=== PATIENT | female | born 1975 | race Caucasian/White ===

== ENCOUNTER 2016-05-11 14:32 | Emergency (ER) | payer OTHER ==
[2016-05-11 14:41] VITALS: BP 159/80; PULSE 78; RESP 18; TEMP 98; O2SAT 99
[2016-05-11 14:49] LABS: COLOR YELLOW; LEUKOCYTE ESTERASE,URINE 3+ (NEGATIVE)
[2016-05-11 14:59] LABS: BACTERIA 2+ /hpf (NONE SEEN); MUCUS TRACE /lpf (NONE-1+); RBC,URINE 25-50 /hpf (0-3); WBC,URINE 50-182 /hpf (0-3)
[2016-05-11 15:04] LABS: YEAST OCCASIONAL /hpf (NONE SEEN)
--- NOTE | 2016-05-11 15:24 | UCPHY ---
H & P Time Seen by Provider: 05/11/16 14:57 Patient Type: Established HPI/ROS: HPI Urinary complaints. 40-year-old female by private vehicle with her friend. This patient reports that she has had burning with urination and some blood in her urine since this morning. She denies back pain. No fever. No vomiting. ROS: Constitutional: No fever, no chills. No weakness. Gastrointestinal: No abdominal pain, no vomiting, no diarrhea. Genitourinary: As above. Musculoskeletal: No back pain. No neck pain. No myalgias or arthralgias. Skin: No rashes. Neurological: No headache. No focal weakness or altered sensation. Past medical history: Bipolar. Social history: Physical Exam: General Appearance: Alert, no distress. This patient is responding to questions appropriately and in full sentences. This patient appears well- hydrated and well-nourished. Eyes: Pupils equal and round no pallor or injection. No lid edema, erythema or injection. Gastrointestinal: Abdomen is soft and nontender, no masses, bowel sounds normal. No focal tenderness at McBurney's point. No Palacios sign. Neurological: Motor sensory function is grossly intact. Cranial nerves are normal. Gait is normal. Skin: Warm and dry, no rashes. Musculoskeletal: No CVA tenderness bilaterally. Extremities are symmetrical. All joints range without pain or impingement. Psychiatric: No agitation. No depression. Database: EKG: Imaging: Procedures: Emergency department course: Results of urinalysis discussed with the patient. Diagnosis of urinary tract infection discussed. Medication allergies reviewed. Patient started on Keflex in the emergency department for treatment of urinary tract infection. Plan will be to prescribe her Keflex at 500 mg four times daily for the next 7 days. I will also prescribe Pyridium. She feels comfortable with this plan. Her vital signs have been reviewed and are normal other than moderate hypertension. She feels comfortable going home with her mother. Follow-up and return to emergency department precautions discussed. All of her questions were answered. She was discharged in good condition. Differential Diagnosis: The differential diagnosis on this patient includes but is not limited to urinary tract infection, cystitis. Pyelonephritis unlikely. This represents a partial list of diagnoses considered. These considerations are based on history , physical exam, past history, reassessment and diagnostic testing. Smoking Status: Never smoked Constitutional: Initial Vital Signs Temperature (C) 36.6 C 05/11/16 14:39 Heart Rate 78 05/11/16 14:39 Respiratory Rate 18 05/11/16 14:39 Blood Pressure 159/80 H 05/11/16 14:39 O2 Sat (%) 99 05/11/16 14:39 Allergies/Adverse Reactions: No Known Allergies Allergy (Verified 07/13/12 20:26) Home Medications: Medication Instructions Recorded [place] Carbonate ER [Lithobid 300 1,050 mg PO 07/13/12 mg (RX)] Multivitamins [Tab-A-Tho] 1 each PO DAILY 07/13/12 Cephalexin [Keflex (*)] 500 mg PO Q6 7 Days 05/11/16 Phenazopyridine HCl [Pyridium] 200 mg PO TID #10 tab 05/11/16 Medical Decision Making - Data Points Laboratory Results: 05/11/16 14:45 Urine Color YELLOW Urine Appearance CLOUDY Urine pH 5.0 (5.0-7.5) Ur Specific [place] 1.025 (1.002-1.030) Urine Protein 3+ H (NEGATIVE) Urine Ketones TNP Urine Blood 3+ H (NEGATIVE) Urine Nitrate TNP Urine Bilirubin NEGATIVE (NEGATIVE) Urine Urobilinogen TNP Ur Leukocyte Esterase 3+ H (NEGATIVE) Urine RBC 25-50 /hpf H /hpf (0-3) Urine WBC 50-182 /hpf H /hpf (0-3) Ur Epithelial Cells 1+ /lpf /lpf (NONE-1+) Urine Bacteria 2+ /hpf H /hpf (NONE SEEN) Urine Mucus TRACE /lpf /lpf (NONE-1+) Urine Yeast OCCASIONAL /hpf H /hpf (NONE SEEN) Ur Culture Indicated? INDICATED H (NI) Urine Glucose TNP Departure - Departure Disposition: Home, Routine, Self-Care Clinical Impression: Urinary tract infection Condition: Good Instructions: Urinary Tract Infection in Women (ED) Additional Instructions: Read and follow provided instructions. Follow-up with your primary care physician in 1-2 days for re-evaluation. Take medication as prescribed through entire course of treatment. Return to the emergency department for worsening symptoms, back pain, fever, vomiting or other serious concerns. Referrals: Lisa Salas MD [Primary Care Provider] - As per Instructions Prescriptions: Cephalexin [Keflex (*)] 500 mg PO Q6 7 Days Phenazopyridine HCl [Pyridium] 200 mg PO TID #10 tab - PQRS PQRS Measurement: Not applicable.
[2016-05-11] MEDS ORDERED: CEPHALEXIN 500 MG CAP PO ONE (15:31)
== END 2016-05-11 15:35 | disposition home or self-care (01) ==
LOC: CED 14:32
DX: N39.0 Urinary tract infection, site not specified (principal)
CPT/HCPCS: 81003-PO; 81015-PO; 99214-PO; G0463-PO

== ENCOUNTER 2016-12-16 17:01 | Emergency (ER) | payer OTHER ==
[2016-12-16 17:19] VITALS: RESP 16; TEMP 98.4
--- NOTE | 2016-12-16 17:31 | CPEKG ---
Heart Rate: 76 RR Interval: 789 P-R Interval: 160 QRSD Interval: 78 QT Interval: 400 QTC Interval: 450 P [place]: 59 QRS [place]: 18 T Wave [place]: 21 EKG Severity - NORMAL ECG - EKG Impression: SINUS RHYTHM EKG Impression: Flat T-waves V2 through V5 with low-amplitude of uncertain significance, EKG Impression: borderline.. Electronically Signed By: Vinh Marc 16-Dec-2016 20:55:40
--- NOTE | 2016-12-16 17:40 | EDPHY ---
H & P Stated Complaint: SOB X2.5WKS,BILAT ANKLE SWELLING, WITH OCASSIONAL Time Seen by Provider: 12/16/16 17:25 HPI/ROS: CHIEF COMPLAINT: SOB for 3 weeks, ankle swelling off and on for 3 days. HISTORY OF PRESENT ILLNESS: this is a 41-year-old female with no prior personal history of asthma though she has a significant family history of asthma in the way of her brother and children. 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 She [place] always [place] and has not noted a predilection to have breathing difficulties on the seasonal basis however does have seasonal allergies woman ENT point of view as she is noted to have a nasal crease For last 3 weeks she has noted progressive difficulty with dyspnea on exertion and even so dyspnea when carrying on a conversation. There is really no pain at all whatsoever nor any pleuritic pain. She notes that when she gets to the top of stairs after 13 steps yesterday have access to have stop and catch her breath. She has had a cough but this only occurs at the time she has shortness of breath. Per se is a dry cough at the time. Had no other times any coughing shortly no phlegm production or mucus. She has not had any James inhibitors. She has not noted a positional problem with respect to shortness of breath however she will get short of breath at rest when having a conversation. She says she is able to keep up with a walking it would go for a walk however she would be short of breath when it that is not like her. 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 As her lithium her last level was 5 months ago and she has been on this for at least 6 years. To her knowledge she has no problems related to kidney disease. There has been no fevers or chills or dysuria frequency or pyuria. As to the ankle swelling that began 3 days ago. Yesterday it seemed to be gone down. However returned again today. She called her family doctor with complaints of shortness of breath with exertion as well as leg swelling and she was sent in here for evaluation. PE/DVT risk factors Prior DVT/PE: No Immobilization: No the flight whereby she did have 3 days of swelling was approximately 6 months ago Splint/Cast: No Surgery, recently: No Family history of hypercoagulable syndrome: No Unilateral leg swelling: No Obesity: yes Estrogen: On Depo Perc Score is unable to be performed due to the Depo. Cardiac Risk Factors: DM: No HTN: No High Chol: No Smoking: No Family History: No Obesity: yes SLE type illenss: No HIV: [No REVIEW OF SYSTEMS: Constitutional: No fever, no chills. Eyes: No discharge ENT: No sore throat. Cardiovascular: No chest pain, no palpitations. Respiratory: See above Gastrointestinal: No nausea vomiting or diarrhea. No abdominal pain. Genitourinary: No hematuria or frequency. Musculoskeletal: No back pain. Skin: No rashes. Neurological: No headache. 10 point ROS otherwise negative Source: Patient Exam Limitations: No limitations - Personal History LMP (Females 10-55): Extended Cycle BCP/Inj - Medical/Surgical History Hx Asthma: No Hx Chronic Respiratory Disease: No Hx Diabetes: No Hx Cardiac Disease: No Hx Renal Disease: No Hx Cirrhosis: No Hx Alcoholism: No Hx HIV/AIDS: No Hx Splenectomy or Spleen Trauma: No Other PMH: mED HX-ANXIETY/DEPRESSION,BIPOLAR,TOUSSAINT's. Surg-D&C -2003 - Family History Significant Family History: Asthma (Her brother as well as her children. She notes that she has done a peak flow before on herself and got 540. At the same token, he does not have a history of asthma) - Social History Smoking Status: Never smoked Alcohol Use: None Drug Use: None - Physical Exam Exam: General Appearance: Alert, no distress. Afebrile. Normal phonation. No respiratory distress. She notes that she has no facial swelling, she does however appear overweight but that is all. Eyes: Pupils equal and round no pallor or injection. No icterus ENT, Mouth: Mucous membranes moist. Pharynx without erythema or exudate. TM Clear. Neck: No adenopathy. Supple. No JVD. Trachea in midline. Respiratory: There are no retractions, lungs are clear to auscultation. With peak flow, I do hear a mild trace sibling wheeze at the right lung base Chest wall: Nontender to palpation. No crepitus. Cardiovascular: Regular rate and rhythm, no murmur Abdomen: Soft and nontender, no masses, bowel sounds normal. Femoral pulses equal. Neurological: Ox3. No motor weakness. Sensation intact. Gait nl. Skin: Warm and dry, no rashes. Musculoskeletal: No joint swelling. Extremities: No edema. Homans sign negative. No cords. Psychiatric: Normal affect. Patient is oriented X 3. There is no agitation Constitutional: Initial Vital Signs Temperature (C) 36.9 C 12/16/16 17:07 Heart Rate 78 12/16/16 17:07 Respiratory Rate 16 12/16/16 17:07 Blood Pressure 175/118 H 12/16/16 17:07 O2 Sat (%) 97 12/16/16 17:07 O2 Delivery Mode Room Air Allergies/Adverse Reactions: hydrocodone Allergy (Intermediate, Verified 12/16/16 17:06) Vomiting Home Medications: Medication Instructions Recorded [place] Carbonate ER [Lithobid 300 1,050 mg PO 07/13/12 mg (RX)] Abilify 12/16/16 Albuterol [Proventil Inhaler HFA 2 puffs IH Q4 PRN #1 mdi 12/16/16 (*)] Triamcinolone Acetonide [Azmacort] 20 gm IH BID #1 aer.w.adap 12/16/16 amLODIPine BESYLATE [Amlodipine 5 mg PO DAILY #30 tablet 12/16/16 Besylate] Medical Decision Making - Diagnostics EKG Interpretation: EKG: Interpreted by me contemporaneously. Rhythm: Normal sinus rhythm. Heart rate 76 QTc 450 QRS: normal STT segment: normal T Waves: a little low amplitude in V3 through V5 of uncertain significance. Q waves none Summary: Borderline EKG with low-amplitude T-waves in V3 through V5 of uncertain significance. Sinus rhythm. Rate 76 Imaging Results: Imaging Impressions Chest X-Ray 12/16/16 17:41 Impression: Normal. Films reviewed by me. Report reviewed in detail ED Course/Re-evaluation: Initial examination there was concern for asthma given the family history. However with forced exhalation I hear back barely wheeze. Thus, given the complaint of swelling in the setting of lithium use will check appropriate labs such as lithium and renal function as well as cardiac size on the chest x-ray. D-dimer, though the only risk factor for DVT/PE is hormone therapy, is also pending as part of the initial laboratory evaluation. Chest x-ray review. Upon my review of this two view chest there is normal heart size, mild hyperinflation, though no pneumothorax or pneumonia. Normal mediastinum. Official results pending and noted above. After a peak flow of 320 - 340 she was given a DuoNeb. After this was approximately a 60 units improvement up 20% from baseline, suggesting significant reactive airway disease is reversible with Proventil treatment Laboratory studies show the following: Borderline CBC in disease suggestive of perhaps low iron stores Normal renal function with a creatinine 1.0 Troponin normal BNP normal D-dimer negative. [place] low at 0.5 Later, at approximately 9:00 p.m. the pharmacy called to change her medicine from Azmacort 2 Flovent. One puff twice daily Differential Diagnosis: Differential Includes but is not limited to: Pneumonia, bronchitis, acute asthma, asthmatic bronchitis, Influenza, pharyngitis, CHF, renal failure, lithium toxicity. - Data Points Laboratory Results: Laboratory Results 12/16/16 17:50 12/16/16 17:50 12/16/16 12/16/16 12/16/16 17:50 17:50 17:50 WBC 8.38 10^3/uL 10^3/uL (3.80-9.50) RBC 5.28 10^6/uL 10^6/uL (4.18-5.33) Hgb 14.3 g/dL g/dL (12.6-16.3) Hct 45.7 % % (38.0-47.0) MCV 86.6 fL fL (81.5-99.8) MCH 27.1 pg L pg (27.9-34.1) MCHC 31.3 g/dL L g/dL (32.4-36.7) RDW 12.9 % % (11.5-15.2) Plt Count 288 10^3/uL 10^3/uL (150-400) MPV 11.5 fL fL (8.7-11.7) Neut % (Auto) 59.9 % % (39.3-74.2) Lymph % (Auto) 25.5 % % (15.0-45.0) [place] % (Auto) 8.7 % % (4.5-13.0) Eos % (Auto) 4.7 % % (0.6-7.6) Baso % (Auto) 1.0 % % (0.3-1.7) Nucleat RBC Rel Count 0.0 % % (0.0-0.2) Absolute Neuts (auto) 5.02 10^3/uL 10^3/uL (1.70-6.50) Absolute Lymphs (auto) 2.14 10^3/uL 10^3/uL (1.00-3.00) Absolute Monos (auto) 0.73 10^3/uL 10^3/uL (0.30-0.80) Absolute Eos (auto) 0.39 10^3/uL 10^3/uL (0.03-0.40) Absolute Basos (auto) 0.08 10^3/uL 10^3/uL (0.02-0.10) Absolute Nucleated RBC 0.00 10^3/uL 10^3/uL (0-0.01) Immature Gran % 0.2 % % (0.0-1.1) Immature Gran # 0.02 10^3/uL 10^3/uL (0.00-0.10) D-Dimer 0.36 ug/mLFEU ug/mLFEU (0.00-0.50) Sodium 142 mEq/L mEq/L (134-144) Potassium 4.7 mEq/L mEq/L (3.5-5.2) Chloride 107 mEq/L mEq/L (97-110) Carbon Dioxide 24 mEq/l mEq/l (22-31) Anion Gap 11 mEq/L mEq/L (8-16) BUN 11 mg/dL mg/dL (7-23) Creatinine 1.0 mg/dL mg/dL (0.6-1.0) Estimated GFR > 60 Glucose 89 mg/dL mg/dL (70-100) Calcium 9.7 mg/dL mg/dL (8.5-10.4) Troponin I < 0.012 ng/mL ng/mL (0.000-0.034) NT-Pro-B Natriuret Pep 88 pg/mL pg/mL (0-125) [place] 0.5 mEq/L L mEq/L (0.6-1.2) Medications Given: Discontinued Medications Albuterol/Ipratropium (Duoneb) 3 ml IH EDNOW ONE Stop: 12/16/16 18:19 Last Admin: 12/16/16 18:22 Dose: 3 ml Departure - Departure Disposition: Home, Routine, Self-Care Clinical Impression: Cough variant asthma Asthma attack Qualifiers: Asthma severity: moderate Asthma persistence: unspecified Qualified Code(s): J45.901 - Unspecified asthma with (acute) exacerbation Hypertension Qualifiers: Hypertension type: essential hypertension Qualified Code(s): I10 - Essential ( primary) hypertension Condition: Good Instructions: Albuterol (By breathing), Amlodipine (By mouth), Asthma (ED) Additional Instructions: Begin your inhalers tonight. Take the steroid inhaler twice daily. Take the Proventil inhaler when you anticipate exercise as well as when you have shortness of breath. Her lithium level was normal, 0.5. Referrals: Lisa Salas MD [Primary Care Provider] - As per Instructions Stand Alone Forms: Work Excuse Prescriptions: Albuterol [Proventil Inhaler HFA (*)] 2 puffs IH Q4 PRN #1 mdi PRN Reason: Shortness of breath amLODIPine BESYLATE [Amlodipine Besylate] 5 mg PO DAILY #30 tablet Triamcinolone Acetonide [Azmacort] 20 gm IH BID #1 aer.w.adap
[2016-12-16 18:07] LABS: % IMMATURE GRANULYOCYTES 0.2 % (0.0-1.1); ABSOLUTE IMMATURE GRANULOCYTES 0.02 10^3/uL (0.00-0.10); ADD DIFF? NO; ADD MORPH? NO; ADD SCAN? NO; ATYPICAL LYMPHOCYTE FLAG 0 (0-99); FRAGMENT RBC FLAG 0 (0-99); HEMATOCRIT 45.7 % (38.0-47.0); HEMOGLOBIN 14.3 g/dL (12.6-16.3); LEFT SHIFT FLG 0 (0-99); LIPEMIA HEMOLYSIS FLAG 80 (0-99); MEAN CELL HEMOGLOBIN 27.1 pg (27.9-34.1); MEAN CELL HEMOGLOBIN CONCENTR. 31.3 g/dL (32.4-36.7); MEAN CELL VOLUME 86.6 fL (81.5-99.8); MEAN PLATELET VOLUME 11.5 fL (8.7-11.7); PLATELET CLUMPS FLAG 0 (0-99); PLATELET COUNT 288 10^3/uL (150-400); RED BLOOD CELL COUNT 5.28 10^6/uL (4.18-5.33); RED CELL DISTRIBUTION WIDTH 12.9 % (11.5-15.2)
[2016-12-16] MEDS ORDERED: IPRATROPIUM/ALBUTEROL 3 ML DEYVIAL IH ONE ×2 (18:18→18:19)
[2016-12-16 18:20] LABS: ANION GAP 11 mEq/L (8-16); CALCIUM 9.7 mg/dL (8.5-10.4); CARBON DIOXIDE 24 mEq/l (22-31); CHLORIDE 107 mEq/L (97-110); GLOMERULAR FILTRATION RATE > 60; GLUCOSE 89 mg/dL (70-100); POTASSIUM 4.7 mEq/L (3.5-5.2); SODIUM 142 mEq/L (134-144)
[2016-12-16 18:33] LABS: TROPONIN I < 0.012 ng/mL (0.000-0.034)
[2016-12-16 19:18] LABS: LITHIUM 0.5 mEq/L (0.6-1.2)
[2016-12-16 19:46] VITALS: BP 160/106; PULSE 79; O2SAT 96
== END 2016-12-16 19:44 | disposition home or self-care (01) ==
LOC: CED 17:01
DX: J45.991 Cough variant asthma (principal); J45.901 Unspecified asthma with (acute) exacerbation; I10 Essential (primary) hypertension
CPT/HCPCS: 71020-PO; 80048-PO; 83880-PO; 84484-PO; 85025-PO; 85378-PO